=== PATIENT | female | born 1970 | race American Indian/Alaskan Native ===

== ENCOUNTER 2016-11-03 10:44 | Outpatient (CLI) | payer OTHER ==
--- NOTE | 2016-11-03 13:21 | Cat Scan Report ---
CT ABDOMEN AND PELVIS WITH CONTRAST: 11/03/16 CLINICAL: Left upper quadrant abdominal pain, nausea and vomiting. COMPARISON: None. TECHNIQUE: Volumetric acquisition and 1.25 millimeter scan reconstructions after the uneventful intravenous injection of 100 cc Omnipaque 300. Consent was obtained prior to the administration of contrast. Oral contrast was also given. She could not retain ingested oral contrast and promptly vomited it up. FINDINGS: Abdomen: Clear lung bases.The liver is moderately enlarged and mildly diffusely hypodense. Right lobe measures 18.8 cm in length. No liver mass. Normal bile duct status post cholecystectomy. Normal stomach, duodenum, pancreas and spleen. The stomach is completely empty. The small bowel is normal. Normal small bowel.Normal ascending and transverse colon. Diverticulosis of the descending colon but no signs of diverticulitis. The appendix is well limits of normal. No mass, lymphadenopathy or ascites.No pneumoperitoneum. Pelvis: Absence of the uterus and normal vaginal cuff. Normal urinary bladder. Mild sigmoid diverticulosis but no diverticulitis. Ovaries are not identified. No adnexal mass or free fluid.. Bone windows demonstrate no bone lesion. IMPRESSION:1. Mild hepatic steatosis and hepatomegaly. 2. Status post cholecystectomy. 3. Diverticulosis of the descending and sigmoid colon but no diverticulitis. 4. Status post cholecystectomy and hysterectomy.
== END 2016-11-03 10:45 | disposition home or self-care (01) ==
LOC: SPVIMAG 10:44
PROVIDERS: ATTEND Internal Medicine Gastroenterology
DX: K57.30 Diverticulosis of large intestine without perforation or abscess without bleeding (principal); K76.0 Fatty (change of) liver, not elsewhere classified; R16.0 Hepatomegaly, not elsewhere classified; Z90.49 Acquired absence of other specified parts of digestive tract; Z90.710 Acquired absence of both cervix and uterus
CPT/HCPCS: 74177; Q9967; 82962

== ENCOUNTER 2018-02-16 06:46 | Day surgery (SDC) | payer OTHER ==
[2018-02-16] MEDS ORDERED: ECOTRIN PO NR (07:16)
[2018-02-16] MEDS ORDERED: NACL 0.9% 500 ML 500 ML IV SCH (08:00)
[2018-02-16 08:02] LABS: Basophils % (Auto) 0.4 % (0.0-1.8); Eosinophils # (Auto) 0.1 K/mm3 (0.0-0.4); Hematocrit 37.2 % (30.3-42.9); Hemoglobin 12.4 gm/dl (10.1-14.3); Lymphocytes # (Auto) 3.1 K/mm3 (1.2-5.4); Lymphocytes % (Auto) 34.1 % (13.4-35.0); Mean Corpuscular HGB Conc 33 % (30-34); Mean Corpuscular Hemoglobin 32 pg (28-32); Mean Corpuscular Volume 95 fl (79-97); Monocytes # (Auto) 0.6 K/mm3 (0.0-0.8); Monocytes % (Auto) 6.3 % (0.0-7.3); Platelet Count 251 K/mm3 (140-440); Red Blood Count 3.92 M/mm3 (3.65-5.03); Red Cell Distribution Width 13.5 % (13.2-15.2)
[2018-02-16] MEDS ORDERED: HALFPRIN EC PO ONE ×2 (08:11→08:26)
[2018-02-16 08:13] LABS: BUN/Creatinine Ratio 18; Blood Urea Nitrogen 14 mg/dL (7-17); Calcium 9.2 mg/dL (8.4-10.2); Hemolysis Index 30; INR 0.96 (0.87-1.13); Partial Thromboplastin Time 29.7 Sec. (24.2-36.6)
[2018-02-16] MEDS: SUBLIMAZE ONE ×3 (09:16→09:37)
[2018-02-16] MEDS: XYLOCAINE 2% INFILTRATI ONE ×3 (09:16→09:35)
[2018-02-16] MEDS: VERSED ONE ×2 (09:16→09:27)
[2018-02-16] MEDS: CALAN ONE ×2 (09:17→09:30)
[2018-02-16] MEDS: HEPARIN 10,000 UNITS/10 ML ONE ×2 (09:17→09:30)
[2018-02-16] MEDS: HEPARIN/NS 5000 UNIT/500ML(CATH LAB) 1,000 ML IR ONE ×2 (09:18→09:27)
[2018-02-16] MEDS: NITROGLYCERIN SYRINGE 3 ML ONE ×2 (09:23→09:30)
[2018-02-16] MEDS ORDERED: PLAVIX PO SCH (10:00)
--- NOTE | 2018-02-16 10:20 | Cardiac Catherization Report ---
CARDIAC CATHETERIZATION REFERRING PHYSICIAN: Neil Dominguez MD INDICATION FOR PROCEDURE: The patient is a very pleasant 47-year-old -[place] female, who has multiple risk factors, recurrent chest pain, referred for left heart catheterization. Risks, benefits, and potential alternatives explained at length prior to obtaining informed consent. PROCEDURE IN DETAIL: The patient was brought to the laboratory [facility] in a postabsorptive state, prepped and draped in sterile fashion. Altaf's test in right hand was normal. A 2 mL of 2% lidocaine used to anesthetize the right wrist. A standard 6-Uzbek hydrophilic sheath used to cannulate the right radial artery. The patient had a small radial artery difficulty passing catheters. This is unusual, but we decided to proceed with femoral access. A 5-Uzbek used to cannulate the right common femoral artery via modified Seldinger technique. All exchanges performed exchange a J-tipped guidewire. JL4 catheter used to engage the left main. No dampening or ventricularization. Cineangiography performed in multiple projections. JR4 catheter was used to cross the aortic valve under fluoroscopic guidance. Left ventriculography performed 30 BEYER and 30 RASHAD projections via hand injection, catheter flushed. Manual pullback performed with continuous pressure monitoring. Catheter used to engage the right coronary. No dampening or ventricularization. Cineangiography performed in all projections. Next, catheter exchanged for a pigtail catheter due to recurrent chest pain and malignant hypertension proceeded with root aortography in the RASHAD projection with a power injector and pigtail catheter. Next, catheter removed from the body of wire, sheath removed. Manual pressure used to achieve hemostasis. DATA: Aortic pressure is 120/80, LV pressure is 120, LVEDP of 18 mmHg. Left ventriculography revealed normal systolic performance with estimated ejection fraction of 55-60%. No evidence of aortic stenosis. CORONARY ANATOMY: This is a right dominant system. Left main without significant disease, bifurcates left anterior descending and left circumflex. Left circumflex is moderate sized vessel, courses AV groove. No significant disease. LAD is a moderate sized vessel, courses anterior intergroove, wraps around the apex, no significant disease in the LAD or diagonal system. No significant disease in the circumflex system. Right coronary is a moderate sized vessel, courses AV groove. No significant disease in this right dominant right coronary. Left ventriculography reveals normal systolic performance with estimated ejection fraction of 55-60%. Root aortography reveals normal contour, normal grade vessel anatomy, no evidence of dissection, penetrating aortic ulcer or aortic insufficiency. I directly supervised the administration of moderate sedation with fentanyl and Versed from 9:26 a.m. to 9:52 a.m. CONCLUSIONS: 1. No angiographic evidence of significant epicardial coronary disease in this right dominant system. 2. Normal left ventricular systolic performance with an estimated ejection fraction of 55-60%. 3. No evidence of aortic stenosis. 4. High normal LVEDP. 5. Root aortography without evidence of penetrating aortic ulcer, aortic dissection or aortic valve insufficiency. At this point, recommend aggressive primary prevention measures. Blood pressure control. Standard radial and groin care. Results of procedure discussed at length with the patient and her . All questions and concerns were addressed. JOB# [id number] GRETA/THEODORE
--- NOTE | 2018-02-16 11:19 | Short Stay Summary ---
Short Stay Documentation Date of service: 02/16/18 - Allergies and Medications Current Medications: Allergies RAYMOND Inhibitors Allergy (Verified 02/16/18 07:48) Hives,SOB lisinopril Allergy (Verified 02/16/18 07:48) Hives, SOB Penicillins Allergy (Verified 02/16/18 07:48) Hives,SHORTNESS OF BREATH Sulfa (Sulfonamide Antibiotics) Allergy (Verified 02/16/18 07:48) Hives AND SOB Home Medications Medication Instructions Recorded Confirmed Last Taken Type Albuterol Sulfate [Ventolin HFA] 2 puff INHALATION BID 02/16/18 02/16/18 History 2 puff Aspirin EC [Aspirin Enteric Coated 81 mg PO QDAY 02/16/18 02/16/18 02/15/18 History TAB] Azilsartan Medoxomil [Edarbi] 40 mg PO DAILY 02/16/18 02/16/18 02/16/18 05:00 History Calcium Carbonate [Calcium] 500 mg PO DAILY 02/16/18 02/16/18 02/15/18 History 500mg Clopidogrel Bisulfate [Plavix] 75 mg PO DAILY 02/16/18 02/16/18 02/15/18 History 75mg Ergocalciferol [Vitamin D2] 1 cap PO QWEEK 02/16/18 02/16/18 02/12/18 History 1 cap Esomeprazole Magnesium [Nexium] 20 mg PO BID 02/16/18 02/16/18 02/15/18 History 20mg Hydrochlorothiazide [HCTZ] 25 mg PO DAILY 02/16/18 02/16/18 02/15/18 History 25mg LORazepam [Ativan] 0.5 mg PO DAILY 02/16/18 02/16/18 02/15/18 History 0.5mg Loratadine [Claritin] 10 mg PO DAILY 02/16/18 02/16/18 02/15/18 History 10mg Metoprolol Xl [Metoprolol 100 mg PO HS 02/16/18 02/16/18 02/15/18 History SUCCINATE ER TAB] 100mg Rosuvastatin (Nf) [Crestor] 10 mg PO QHS 02/16/18 02/16/18 02/15/18 History 10mg hydrALAZINE [Apresoline] 25 mg PO TID 0602/16/18 02/16/18 05:00 History Active Medications Clopidogrel Bisulfate (Plavix) 75 mg PO QDAY LIANNE Last Admin: 02/16/18 08:47 Dose: 75 mg Sodium Chloride (Nacl 0.9% 500 Ml) 500 mls @ 50 mls/hr IV DIRECT LIANNE Stop: 02/16/18 17:59 Last Admin: 02/16/18 08:44 Dose: 50 mls/hr Oxycodone/Acetaminophen (Percocet 5/325) 1 tab PO ONCE ONE Stop: 02/16/18 11:18 - Brief post op/procedure progress note Date of procedure: 02/16/18 Pre-op diagnosis: recurrent chest pain Post-op diagnosis: same Procedure: LHC - see dictated cath report Anesthesia: local Estimated blood loss: none Condition: stable - Disposition Condition at discharge: Stable Disposition: [id number] TO HOME OR SELFCARE - Discharge Diagnoses (1) Recurrent chest pain Status: Chronic (2) HTN (hypertension) Status: Chronic Short Stay Discharge Plan Activity: advance as tolerated Diet: low salt Wound: open to air, keep clean and dry, per your surgeon's advice Follow up with: YONATAN OLVIERA MD [Primary Care Provider] - 7 Days
[2018-02-16] MEDS ORDERED: PERCOCET 5/325 PO NR (11:30)
[2018-02-16 14:03] VITALS: BP 98/61
== END 2018-02-16 15:00 | disposition home or self-care (01) ==
LOC: CATHLABREC 06:46
PROVIDERS: ATTEND Internal Medicine
DX: R07.89 Other chest pain (principal); I10 Essential (primary) hypertension; I65.29 Occlusion and stenosis of unspecified carotid artery; F41.9 Anxiety disorder, unspecified; K21.9 Gastro-esophageal reflux disease without esophagitis; Z79.82 Long term (current) use of aspirin; Z88.2 Allergy status to sulfonamides; Z88.0 Allergy status to penicillin; Z88.8 Allergy status to other drugs, medicaments and biological substances
CPT/HCPCS: 36415; 80048; 85025; 85610; 85730; 93005; 93010; 93458; 93567; 99156; 99157; C1769; C1894; J1644; J2250; J3010; J7040; Q9967